=== PATIENT | female | born 1980 | race Caucasian/White ===

== ENCOUNTER 2017-02-08 13:51 | Emergency (ER) | payer SELFPAY ==
[~2017-02-08] VITALS: Ht 160 cm; Wt 55.5 kg
[2017-02-08 13:54] VITALS: Ht 160 cm; Wt 55.5 kg
--- NOTE | 2017-02-08 14:55 | EN ---
Date/Time of Note Date/Time of Note DATE: 02/08/17 TIME: 14:54 ER Progress Note This is a 36-year-old female presenting to the emergency department stating that she has a spider bite in her right groin that she has noticed for 2 days. Patient complains of subjective fevers. She states the pain is moderate in severity. She has not taken any medications. On examination in [facility], patient appears to have an abscess in the right vaginal region which is draining. Patient will be transferred to ER to for further treatment. ADILIA HARPER PA-C Feb 08, 2017 14:55
[2017-02-08] MEDS ORDERED: LIDOCAINE 1%/EPI 30 ML INJ INJ STA (15:45)
[2017-02-08] MEDS ORDERED: CEFTRIAXONE 1 GM INJ IM ONE (16:00)
[2017-02-08] MEDS ORDERED: LIDOCAINE 2%/EPI MPF (SDV) 20 ML VIAL INJ ONE (16:00)
[2017-02-08] MEDS ORDERED: CEPHALEXIN 500 MG CAP PO STA (16:42)
[2017-02-08] MEDS ORDERED: TRIMETHOPRIM/SULFAMETHOX (DS) TAB PO STA (16:42)
[2017-02-08] MEDS ORDERED: CEPH-443 PO (16:47)
[2017-02-08] MEDS ORDERED: SULF1TAB31 PO (16:47)
--- NOTE | 2017-02-08 16:59 | ERD ---
ER Documentation Chief Complaint Date/Time DATE: 02/08/17 TIME: 16:53 Chief Complaint SPIDER BITE ON RIGHT GROIN AREA,POSSIBLE ABSCESS. HPI This is a 36-year-old female who is homeless presenting to the emergency department complaining painful bump on her right groin region that she noted for the past 2 days. Patient states that she thinks is a spider bite. Patient states the pain is moderate in severity. . Patient denies any current fevers, IV drug use. She denies taking any medications for this ROS All systems reviewed and are negative except as per history of present illness. Medications Home Meds Active Scripts Sulfamethoxazole/Trimethoprim* (Bactrim Ds* Tablet) 1 Each Tablet, 1 TAB PO BID , #20 TAB Prov:ADILIA HARPER PA-C 02/08/17 Cephalexin* (Keflex*) 500 Mg Capsule, 500 MG PO QID for 10 Days, CAP Prov:ADILIA HARPER PA-C 02/08/17 Allergies Allergies: Coded Allergies: No Known Allergy (Unverified , 02/03/16) PMhx/Soc Medical and Surgical Hx: pt denies Medical Hx, pt denies Surgical Hx History of Surgery: No Anesthesia Reaction: No Hx Neurological Disorder: No Hx Respiratory Disorders: No Hx Cardiac Disorders: Yes (CARDIOMYOPATHY) Hx Psychiatric Problems: Yes (DEPRESSION) Hx Miscellaneous Medical Probl: Yes (HX OF DRUG ABUSE) Hx Alcohol Use: No Hx Substance Use: Yes (MJ, METH, HEROIN) Hx Tobacco Use: Yes Smoking Status: Current every day smoker Physical Exam Vitals Vital Signs Date Time Temp Pulse Resp B/P Pulse Ox O2 Delivery O2 Flow Rate FiO2 02/08/17 13:54 97.7 99 18 98/61 97 Physical Exam General: WD/WN, in no apparent distress, non-toxic appearing HENT: NC/AT Eyes: Conjunctiva normal Neck: Supple Pulm: Clear to auscultation, normal labored breathing; no wheezing/rales/ rhonchi heard CV: Good capillary refill GI: Non-distended, no guarding Back: No masses Ext: No clubbing, cyanosis, or edema Neuro: Moves on all fours Skin: Erythematous, fluctuant papule on the right cutaneous groin next to the right vaginal labia with evidence of purulence. There is surrounding erythema, induration ~3cm Psych: Normal mood Results 24 hrs Current Medications Medications (Trade) Dose Ordered Sig/Zaida Route PRN Reason Start Time Stop Time Status Last Admin Dose Admin Lidocaine/ Epinephrine (Xylocaine 1%/ Epi) 30 ml ONCE STAT INJ 02/08/17 15:45 02/08/17 15:46 Cancel Ceftriaxone Sodium (Rocephin) 1 gm ONCE ONCE IM 02/08/17 16:00 02/08/17 16:01 DC 02/08/17 16:10 Lidocaine/ Epinephrine (Xylocaine 2%/ Epi Mpf(Sdv)) 20 ml ONCE ONCE INJ 02/08/17 16:00 02/08/17 16:01 DC Trimethoprim/ Sulfamethoxazole (Bactrim (Ds)) 1 tab ONCE STAT PO 02/08/17 16:42 02/08/17 16:44 DC Cephalexin (Keflex) 500 mg ONCE STAT PO 02/08/17 16:42 02/08/17 16:44 DC Procedures/MDM This is a 36-year-old female presenting to the emergency department with an abscess in the right groin for the past 2 days with surrounding cellulitis. There was no evidence of lymphangitis, bacteremia,necrotizing fasciitis.. On examination there was an abscess that was draining and an I&D was preformed, procedure below. Patient received 1g ceftriaxone in the ED. Prescription for Keflex and Bactrim was provided, I discussed the patient to return in 2 days for wound check, return sooner for any worsening signs or symptoms. Patient is hematuria stable for discharge for home. Patient understood and agreed with this plan. PROCEDURE NOTE: Verbal consent was obtained Wound was irrigated with normal saline Wound was cleansed with Betadine 5cc Lidocaine 2% with epinephrine was used as a local anesthetic #11 blade scalpel was used for a single 0.25cm incision at site where purulence is draining. Copious drainage of purulence occurred Wound packed with iodoform gauze strips Procedure tolerated without complications Wound dressed with sterile gauze. Departure Diagnosis: Primary Impression: Abscess Additional Impression: Cellulitis Condition: Stable Patient Instructions: Abscess Drainage, Cellulitis, Abscess, Incision And Drainage Referrals: COMM[facility] CL[facility] YOU HAVE RECEIVED A MEDICAL SCREENING EXAM AND THE RESULTS INDICATE THAT YOU DO NOT HAVE A CONDITION THAT REQUIRES URGENT TREATMENT IN THE EMERGENCY DEPARTMENT. FURTHER EVALUATION AND TREATMENT OF YOUR CONDITION CAN WAIT UNTIL YOU ARE SEEN IN YOUR DOCTORS OFFICE WITHIN THE NEXT 1-2 DAYS. IT IS YOUR RESPONSIBILITY TO MAKE AN APPOINTMENT FOR FOLOW-UP CARE. IF YOU HAVE A PRIMARY DOCTOR --you should call your primary doctor and schedule an appointment IF YOU DO NOT HAVE A PRIMARY DOCTOR YOU CAN CALL OUR PHYSICIAN REFERRAL HOTLINE AT IF YOU CAN NOT AFFORD TO SEE A PHYSICIAN YOU CAN CHOSE FROM THE FOLLOWING [facility] [address] [facility] [address] [facility] [address] [facility] [address] [facility] [address] [facility]. [facility] [address] [facility]. [facility] YOU HAVE RECEIVED A MEDICAL SCREENING EXAM AND THE RESULTS INDICATE THAT YOU DO NOT HAVE A CONDITION THAT REQUIRES URGENT TREATMENT IN THE EMERGENCY DEPARTMENT. FURTHER EVALUATION AND TREATMENT OF YOUR CONDITION CAN WAIT UNTIL YOU ARE SEEN IN YOUR DOCTORS OFFICE WITHIN THE NEXT 1-2 DAYS. IT IS YOUR RESPONSIBILITY TO MAKE AN APPOINTMENT FOR FOLOW-UP CARE. IF YOU HAVE A PRIMARY DOCTOR --you should call your primary doctor and schedule and appointment IF YOU DO NOT HAVE A PRIMARY DOCTOR YOU CAN CALL OUR PHYSICIAN REFERRAL HOTLINE AT . IF YOU CAN NOT AFFORD TO SEE A PHYSICIAN YOU CAN CHOSE FROM THE FOLLOWING [facility] INSTITUTIONS: [facility] [address] [place] [address] [facility] [address] [place] [address] [facility] [address] [place] [address] [facility] URGENT CARE/SPECIALTIES Additional Instructions: FOLLOW UP WITH YOUR PRIMARY CARE PHYSICIAN TOMORROW.Return to this facility if you are not improving as expected. Take all medicines as directed. Return to this facility if you are not improving as expected. Return to this facility in 2 DAYS for a follow-up exam.Return sooner if your condition worsens. Discount [facility] Coupon Your Prescription: sulfamethoxazole / trimethoprim 800mg/160mg 20 tablets Discounted caldreon with this coupon: $10.86 This is your estimated calderon at [facility]. The pharmacy will provide the exact pricing. [address] Pharmacist Info: [facility] [id number] RxBin [id number] RxPCN [id number] Pharmacist Questions Call: Customer Questions Call: ADILIA HARPER PA-C Feb 08, 2017 16:59
== END 2017-02-08 17:34 | disposition home or self-care (01) ==
LOC: FTE 13:51
DX: L02.214 Cutaneous abscess of groin (principal); L03.314 Cellulitis of groin; F17.210 Nicotine dependence, cigarettes, uncomplicated
CPT/HCPCS: 10061; 96372; 99284; J0696